=== PATIENT | female | born 1960 | race Two or more races ===

== ENCOUNTER 2021-06-10 12:31 | Inpatient (IN) | payer SELFPAY ==
[~2021-06-10] VITALS: Ht 177.8 cm; Wt 77.9 kg
[2021-06-10] MEDS ORDERED: LIDOCAINE 2%HCL (LOCAL ANESTH.) INJ 20ML MDV ONE (12:45)
[2021-06-10] MEDS ORDERED: ASPirin 325 MG TAB PO ONE (12:45)
[2021-06-10] MEDS ORDERED: IODIXANOL 320MG/ML 100ML BTL IV ONE ×2 (12:45→13:32)
[2021-06-10] MEDS ORDERED: MIDAZOLAM HCL 2MG/2ML 2ml VIAL (1mg/ml) ONE (12:47)
[2021-06-10] MEDS ORDERED: fentaNYL CITRATE 100 MCG/2 ML VL ONE (12:47)
[2021-06-10] MEDS ORDERED: ANGIOMAX 250 MG VIAL IV ONE (12:47)
[2021-06-10] MEDS ORDERED: diphenhdrAMINE HCL 50 MG/1 ML VL ONE ×2 (12:47→13:17)
[2021-06-10] MEDS ORDERED: SODIUM CHL 0.9% 50 ML ONE (12:48)
[2021-06-10 13:05] LABS: Basophils # (auto) 0 10 ^3/uL (0-0.2); Basophils % (auto) 0.6 % (0.0-2.0); Eosinophils # (auto) 0.1 10 ^3/uL (0-0.8); Eosinophils % (auto) 0.8 % (0.0-7.0); Hematocrit 46.6 % (36.0-46.0); Hemoglobin 15.5 g/dL (12.2-16.2); Lymphocytes # (auto) 2.5 10 ^3/uL (0.4-5.4); Lymphocytes % (auto) 31.4 % (10.0-50.0); Mean Corpuscular Hgb Conc. 33.4 g/dL (32.0-36.0); Mean Corpuscular Volume 89.9 fL (80.0-100.0); Monocytes # (auto) 0.5 10 ^3/uL (0-1.3); Monocytes % (auto) 6.1 % (0.0-12.0); Neutrophils # (auto) 4.8 10 ^3/uL (1.6-8.6); Neutrophils % (auto) 61.1 % (37.0-80.0); Red Blood Cells 5.18 10^6/uL (4.0-5.20); Red Cell Distribution Width 14.5 % (11.8-14.3); White Blood Cell 7.9 10^3/uL (4.4-10.8)
[2021-06-10] MEDS ORDERED: LIDOCAINE W/ EPINEPHRINE 2% INJ 20ML VIAL ONE (13:08)
[2021-06-10] MEDS ORDERED: FAMOTIDINE (10MG/ML) 2ML VL IV ONE (13:09)
[2021-06-10] MEDS ORDERED: ATROPINE SULF 1 MG/10ml SYR ONE (13:09)
[2021-06-10] MEDS ORDERED: EPINEPHrine HCL 1 MG/10 ML SYRG ONE (13:09)
[2021-06-10] MEDS ORDERED: methylPREDNISolone SOD SUCC 125 MG/2 ML VL ONE (13:09)
[2021-06-10] MEDS ORDERED: BUPIVACAINE 0.25% INJ 50ML VIAL ONE (13:11)
[2021-06-10] MEDS ORDERED: EPTIFIBATIDE INJ (2MG/ML) 10ML VIAL IV ONE (13:24)
[2021-06-10] MEDS ORDERED: TICAGRELOR 90 MG TAB ONE (13:41)
[2021-06-10] MEDS ORDERED: ASPirin 325 MG TAB ONE (13:41)
[2021-06-10] MEDS ORDERED: NITROGLYCERIN 0.4 MG SL TAB SL PRN (13:54)
[2021-06-10] MEDS: SOD CHL 0.45% 1,000 ML IV SCH ×2 (13:54→23:54)
[2021-06-10] MEDS ORDERED: HYDROcodone-ACET 5/325MG TAB PO PRN ×2 (13:54→15:00)
[2021-06-10] MEDS ORDERED: MORPHINE SULFATE INJECTION 2 MG/ML SYRG IV PRN ×2 (13:54→15:00)
[2021-06-10] MEDS ORDERED: ONDANSETRON HCL 4 MG/2 ML VIAL IV PRN ×2 (13:54→15:00)
[2021-06-10] MEDS: SODIUM CHLOR 0.9% PF (SALINE LOCK) 10ML VIAL/SYR IV SCH ×2 (14:00→21:52)
[2021-06-10] MEDS ORDERED: ACETAMINOPHEN 500 MG TAB PO PRN (15:00)
[2021-06-10] MEDS ORDERED: hydrALAZINE HCL 20 MG/ML VL IV PRN (15:00)
[2021-06-10 15:30] LABS: Albumin 3.4 g/dL (3.4-5.0); Calcium 9.3 mg/dL (8.5-10.1); Magnesium 2.7 mg/dL (1.6-2.6); Potassium 3.7 mmol/L (3.5-5.1)
[2021-06-10 15:31] LABS: BUN/Creatinine Ratio 9.8
[2021-06-10 15:41] LABS: Bilirubin, Total 0.6 mg/dL (0.2-1.0)
[2021-06-10] MEDS ORDERED: ESTR0.1C5 VG (18:22)
[2021-06-10] MEDS ORDERED: PROG1CAP2 PO (18:22)
[2021-06-10 20:00] VITALS: BP 131/81
[2021-06-10] MEDS: TICAGRELOR 90 MG TAB PO SCH (21:52)
[2021-06-10] MEDS: DOCUSATE SOD 100 MG CAP PO SCH (21:52)
[2021-06-10 22:00] VITALS: BP 131/81
[2021-06-10] MEDS ORDERED: METOPROLOL TARTRATE 25 MG TAB PO SCH (22:00)
[2021-06-10] MEDS ORDERED: TICAGRELOR 90 MG TAB PO SCH (22:00)
[2021-06-10] MEDS ORDERED: ATORVASTATIN 20 MG TAB PO SCH (22:00)
[2021-06-11 05:00] VITALS: BP 137/70
[2021-06-11 06:46] LABS: BUN/Creatinine Ratio 14.6; Calcium 9.9 mg/dL (8.5-10.1); Potassium 4.5 mmol/L (3.5-5.1)
[2021-06-11 06:50] LABS: Basophils # (auto) 0 10 ^3/uL (0-0.2); Basophils % (auto) 0.1 % (0.0-2.0); Eosinophils # (auto) 0 10 ^3/uL (0-0.8); Hemoglobin 15.4 g/dL (12.2-16.2); Lymphocytes # (auto) 1.1 10 ^3/uL (0.4-5.4); Lymphocytes % (auto) 10.6 % (10.0-50.0); Mean Corpuscular Hgb Conc. 33.5 g/dL (32.0-36.0); Mean Corpuscular Volume 89.7 fL (80.0-100.0); Monocytes # (auto) 0.3 10 ^3/uL (0-1.3); Monocytes % (auto) 3.3 % (0.0-12.0); Red Blood Cells 5.13 10^6/uL (4.0-5.20); Red Cell Distribution Width 14.4 % (11.8-14.3); White Blood Cell 10.5 10^3/uL (4.4-10.8)
[2021-06-11] MEDS: SODIUM CHLOR 0.9% PF (SALINE LOCK) 10ML VIAL/SYR IV SCH ×2 (07:12→13:39)
[2021-06-11 08:00] VITALS: BP 130/65
[2021-06-11] MEDS: SOD CHL 0.45% 1,000 ML IV SCH (09:54)
[2021-06-11] MEDS ORDERED: ASPirin-EC 81 mg tab PO SCH (10:00)
[2021-06-11] MEDS ORDERED: ASPirin 81 mg TAB PO SCH (10:00)
[2021-06-11] MEDS ORDERED: LISINOPRIL 10 MG TAB PO SCH (10:00)
[2021-06-11] MEDS: TICAGRELOR 90 MG TAB PO SCH (10:00)
[2021-06-11] MEDS ORDERED: PANTOPRAZOLE 40 MG/10 ML VIAL INJ IV SCH (10:00)
[2021-06-11] MEDS: DOCUSATE SOD 100 MG CAP PO SCH (10:00)
[2021-06-11] MEDS ORDERED: METOPROLOL SUCCINATE XL 50 MG TAB PO SCH (10:00)
[2021-06-11] MEDS ORDERED: NICOTINE 14 MG/24HR TOPICAL PATCH TD SCH (10:00)
[2021-06-11 12:00] VITALS: BP 133/65
[2021-06-11 12:34] VITALS: BP 130/66
== END 2021-06-11 14:03 | disposition home or self-care (01) | DRG 247 ==
LOC: ER 12:35 → CATH 1 12:44 → TELE 13:54 → TELE-CENTR 17:23
PROVIDERS: ADMIT Specialist; ATTEND Specialist
PROC: 027034Z Dilation of Coronary Artery, One Artery with Drug-eluting Intraluminal Device, Percutaneous Approach (ICD-10-PCS; principal; 2021-06-10)
PROC: 02C03ZZ Extirpation of Matter from Coronary Artery, One Artery, Percutaneous Approach (ICD-10-PCS; 2021-06-10)
PROC: 4A023N7 Measurement of Cardiac Sampling and Pressure, Left Heart, Percutaneous Approach (ICD-10-PCS; 2021-06-10)
PROC: B211YZZ Fluoroscopy of Multiple Coronary Arteries using Other Contrast (ICD-10-PCS; 2021-06-10)
PROC: B215YZZ Fluoroscopy of Left Heart using Other Contrast (ICD-10-PCS; 2021-06-10)
PROC: B41FYZZ Fluoroscopy of Right Lower Extremity Arteries using Other Contrast (ICD-10-PCS; 2021-06-10)
PROC: 3E073PZ Introduction of Platelet Inhibitor into Coronary Artery, Percutaneous Approach (ICD-10-PCS; 2021-06-10)
DX: I21.19 ST elevation (STEMI) myocardial infarction involving other coronary artery of inferior wall (principal); E78.5 Hyperlipidemia, unspecified; F17.210 Nicotine dependence, cigarettes, uncomplicated; I10 Essential (primary) hypertension; Z82.49 Family history of ischemic heart disease and other diseases of the circulatory system; Z20.822 Contact with and (suspected) exposure to COVID-19; Z88.8 Allergy status to other drugs, medicaments and biological substances; Z91.041 Radiographic dye allergy status
CPT/HCPCS: 36415; 71045; 75710; 80048; 80053; 80061; 83735; 84484; 85025; 86141; 87426; 92933; 93005; 93306; 93458; 99152; 99153; 99291; C1874; G0378; J2250; J3490; Q9967

== ENCOUNTER 2021-09-14 13:06 | Inpatient (IN) | payer BC ==
[~2021-09-14] VITALS: Ht 165.1 cm; Wt 88.4 kg
[2021-09-14 05:30] VITALS: BP 104/77
[~2021-09-14 13:06] MED LIST: ESTR0.1C5 VG; PROG1CAP2 PO
[2021-09-14] MEDS ORDERED: methylPREDNISolone SOD SUCC 125 MG/2 ML VL IV ONE (13:45)
[2021-09-14 14:52] LABS: Basophils # (auto) 0 10 ^3/uL (0-0.2); Eosinophils # (auto) 0 10 ^3/uL (0-0.8); Eosinophils % (auto) 0.1 % (0.0-7.0); Hematocrit 38.9 % (36.0-46.0); Hemoglobin 13.4 g/dL (12.2-16.2); Lymphocytes # (auto) 1.1 10 ^3/uL (0.4-5.4); Lymphocytes % (auto) 5.9 % (10.0-50.0); Mean Corpuscular Hemoglobin 30.2 pg (28.0-32.0); Mean Corpuscular Hgb Conc. 34.5 g/dL (32.0-36.0); Mean Corpuscular Volume 87.6 fL (80.0-100.0); Monocytes # (auto) 0.5 10 ^3/uL (0-1.3); Monocytes % (auto) 3.1 % (0.0-12.0); Neutrophils # (auto) 16.2 10 ^3/uL (1.6-8.6); Neutrophils % (auto) 90.9 % (37.0-80.0); Nucleated Red Blood Cells % 0.1 %; Red Blood Cells 4.44 10^6/uL (4.0-5.20); Red Cell Distribution Width 16.1 % (11.8-14.3); White Blood Cell 17.9 10^3/uL (4.4-10.8)
[2021-09-14 15:05] LABS: Anion Gap 11 (5-15); Blood Urea Nitrogen 38 mg/dL (7-18); Calcium 8.4 mg/dL (8.5-10.1); Carbon Dioxide 25 mmol/L (21-32); Chloride 90 mmol/L (98-107); Glucose 172 mg/dL (74-106); Sodium 126 mmol/L (136-145)
[2021-09-14 15:09] LABS: Lactic Acid w/Reflex 2.2 mmol/L (0.4-2.0)
[2021-09-14 15:12] LABS: Alanine Aminotransferase 51 U/L (13-56); Alkaline Phosphatase 154 U/L (45-117); Aspartate Aminotransferase 151 U/L (15-37); BUN/Creatinine Ratio 11.4; Bilirubin, Total 1.8 mg/dL (0.2-1.0); GFR African American 18 mL/min; GFR Non-African American 15 mL/min
[2021-09-14 15:17] LABS: CRP High Sensitivity > 19.0 mg/dL (< 0.3)
[2021-09-14] MEDS ORDERED: ZINC SULFATE 220mg CAP or TAB PO ONE (16:30)
[2021-09-14] MEDS ORDERED: POTASSIUM CHL 20MEQ/100ML 100 ML IV ONE (16:30)
[2021-09-14] MEDS ORDERED: CHOLECALCIFEROL (VITD3) 2,000 UNIT CAP/TAB PO ONE (16:30)
[2021-09-14] MEDS ORDERED: AZITHROMYCIN 500MG/ 250ML 250 ML IV ONE (16:30)
[2021-09-14] MEDS ORDERED: ASCORBIC ACID 500 MG TAB PO ONE (16:30)
[2021-09-15] MEDS ORDERED: ALBUTEROL SULF HFA 90MCG INH 200DOSE IN PRN (03:30)
[2021-09-15] MEDS ORDERED: ONDANSETRON HCL 4 MG/2 ML VIAL IV PRN (03:30)
[2021-09-15] MEDS ORDERED: NITROGLYCERIN 0.4 MG SL TAB SL PRN (03:30)
[2021-09-15] MEDS ORDERED: MORPHINE SULFATE INJECTION 2 MG/ML SYRG IV PRN (03:30)
[2021-09-15] MEDS ORDERED: ACETAMINOPHEN 500 MG TAB PO PRN (03:30)
[2021-09-15 05:00] VITALS: BP 104/77
[2021-09-15] MEDS: cefTRIAXone 1GM/50ML D5W 50 ML IV SCH (05:43)
[2021-09-15 07:17] VITALS: BP 104/77
[2021-09-15 08:00] VITALS: BP 153/70
[2021-09-15] MEDS ORDERED: TICA90TA PO (08:00)
[2021-09-15] MEDS ORDERED: ATOR-47 PO (08:00)
[2021-09-15] MEDS ORDERED: ASPI1TAB19 PO (08:00)
[2021-09-15 09:00] VITALS: BP 107/67
[2021-09-15] MEDS ORDERED: ENOXAPARIN SOD 40 MG/0.4 ML SYRINGE SC SCH (10:00)
[2021-09-15] MEDS: TICAGRELOR 90 MG TAB PO SCH ×2 (10:00→21:28)
[2021-09-15 10:37] LABS: INR 1.16 (0.9-1.15); Partial Thromboplastin Time 29.7 sec (23.6-33.0)
[2021-09-15] MEDS: AZITHROMYCIN 500MG/ 250ML 250 ML IV SCH (10:42)
[2021-09-15] MEDS: ASPirin 81 mg TAB PO SCH (10:42)
[2021-09-15] MEDS: ASCORBIC ACID 1,000 MG TAB PO SCH (10:43)
[2021-09-15] MEDS: CHOLECALCIFEROL (VITD3) 2,000 UNIT CAP/TAB PO SCH (10:43)
[2021-09-15] MEDS: ZINC SULFATE 220mg CAP or TAB PO SCH (10:43)
[2021-09-15] MEDS: PANTOPRAZOLE 40 MG TAB PO SCH (10:44)
[2021-09-15 11:15] LABS: Magnesium 3.4 mg/dL (1.6-2.6)
[2021-09-15 13:41] VITALS: BP 115/70
[2021-09-15 16:00] LABS: Urine Amorphous Crystal FEW /hpf (None Seen); Urine Bacteria NONE SEEN /hpf (None Seen); Urine Blood 1+ /uL (Negative); Urine Mucus FEW (None Seen); Urine Specific Gravity 1.017 (1.001-1.035); Urine WBC 5 /hpf (0 - 5)
[2021-09-15 16:34] VITALS: BP 107/69
[2021-09-15] MEDS ORDERED: guaiFENesin-DM 100/10mg/5ml SYR PO PRN (18:00)
[2021-09-15] MEDS: SODIUM CHLORIDE 0.9% 1,000 ML IV SCH (18:22)
[2021-09-15] MEDS: ATORVASTATIN 20 MG TAB PO SCH (21:59)
[2021-09-15 23:47] LABS: Protein, Urine 315.7 mg/dL (0.0-11.9)
[2021-09-16 05:12] VITALS: BP 110/60
[2021-09-16 05:58] LABS: Basophils # (auto) 0 10 ^3/uL (0-0.2); Basophils % (auto) 0.2 % (0.0-2.0); Eosinophils # (auto) 0.1 10 ^3/uL (0-0.8); Eosinophils % (auto) 0.8 % (0.0-7.0); Hematocrit 34.9 % (36.0-46.0); Hemoglobin 11.7 g/dL (12.2-16.2); Lymphocytes # (auto) 1.7 10 ^3/uL (0.4-5.4); Lymphocytes % (auto) 11.3 % (10.0-50.0); Mean Corpuscular Hemoglobin 29.3 pg (28.0-32.0); Mean Corpuscular Hgb Conc. 33.5 g/dL (32.0-36.0); Mean Corpuscular Volume 87.2 fL (80.0-100.0); Monocytes # (auto) 0.9 10 ^3/uL (0-1.3); Monocytes % (auto) 5.9 % (0.0-12.0); Neutrophils # (auto) 12.3 10 ^3/uL (1.6-8.6); Neutrophils % (auto) 81.8 % (37.0-80.0); Nucleated Red Blood Cells % 0.1 %; Red Cell Distribution Width 16.5 % (11.8-14.3)
[2021-09-16] MEDS: SODIUM CHLORIDE 0.9% 1,000 ML IV SCH ×2 (06:01→22:17)
[2021-09-16 06:09] LABS: Albumin 1.7 g/dL (3.4-5.0); Calcium 7.3 mg/dL (8.5-10.1); Magnesium 3.5 mg/dL (1.6-2.6)
[2021-09-16 06:11] LABS: BUN/Creatinine Ratio 13.5
[2021-09-16 06:14] LABS: Bilirubin, Total 1.6 mg/dL (0.2-1.0); Total Protein 5.8 g/dL (6.4-8.2)
[2021-09-16 06:15] LABS: INR 1.18 (0.9-1.15)
[2021-09-16 06:22] LABS: Potassium 2.9 mmol/L (3.5-5.1)
[2021-09-16] MEDS ORDERED: POTASSIUM EFFERVESENT TAB 25 MEQ PO ONE (08:45)
[2021-09-16 09:26] VITALS: BP 86/50
[2021-09-16] MEDS: ASPirin 81 mg TAB PO SCH (10:00)
[2021-09-16] MEDS ORDERED: ENOXAPARIN SOD 30 MG/0.3 ML SYRINGE SC SCH (10:00)
[2021-09-16] MEDS: TICAGRELOR 90 MG TAB PO SCH (10:00)
[2021-09-16] MEDS: CHOLECALCIFEROL (VITD3) 2,000 UNIT CAP/TAB PO SCH (10:00)
[2021-09-16] MEDS ORDERED: IPRATROPIUM BROM 0.5 MG/2.5ML INH SOL NEB PRN (11:00)
[2021-09-16] MEDS ORDERED: ALBUTEROL SULF 2.5 MG/0.5ML(0.5%) NEB SOLN NEB PRN (11:00)
[2021-09-16] MEDS: cefTRIAXone 1GM/50ML D5W 50 ML IV SCH (11:27)
[2021-09-16] MEDS: PANTOPRAZOLE 40 MG TAB PO SCH (11:46)
[2021-09-16] MEDS: ZINC SULFATE 220mg CAP or TAB PO SCH (11:46)
[2021-09-16] MEDS: ASCORBIC ACID 1,000 MG TAB PO SCH (11:46)
[2021-09-16] MEDS: AZITHROMYCIN 500MG/ 250ML 250 ML IV SCH (12:37)
[2021-09-16 13:49] VITALS: BP 138/60
[2021-09-16] MEDS ORDERED: HYDROcodone-ACET 5/325MG TAB PO ONE (16:30)
[2021-09-16 17:01] LABS: Hematocrit 33.1 % (36.0-46.0)
[2021-09-16 17:10] VITALS: BP 135/63
[2021-09-16 17:24] LABS: INR 1.14 (0.9-1.15); Partial Thromboplastin Time 31.5 sec (23.6-33.0)
[2021-09-16] MEDS: SALINE 0.65 % NASAL SPRAY 45ML BOTTLE EACHNOSTRI SCH ×3 (17:35→22:00)
[2021-09-16 22:00] VITALS: BP 118/61
[2021-09-16] MEDS: PANTOPRAZOLE 40 MG/10 ML VIAL INJ IV SCH (22:17)
[2021-09-16] MEDS: ATORVASTATIN 20 MG TAB PO SCH (22:17)
[2021-09-16 22:58] LABS: Hematocrit 29.2 % (36.0-46.0); Hemoglobin 9.8 g/dL (12.2-16.2)
[2021-09-17] VITALS (8 sets, daily range): BP systolic 114–134; BP diastolic 43–65
[2021-09-17] MEDS: SALINE 0.65 % NASAL SPRAY 45ML BOTTLE EACHNOSTRI SCH ×4 (05:52→21:17)
[2021-09-17] MEDS: SODIUM CHLORIDE 0.9% 1,000 ML IV SCH ×2 (06:08→16:20)
[2021-09-17 07:43] LABS: Hematocrit 28.5 % (36.0-46.0); Hemoglobin 9.6 g/dL (12.2-16.2); Mean Corpuscular Hemoglobin 29.5 pg (28.0-32.0); Mean Corpuscular Hgb Conc. 33.6 g/dL (32.0-36.0); Red Blood Cells 3.24 10^6/uL (4.0-5.20); Red Cell Distribution Width 16.5 % (11.8-14.3); White Blood Cell 9.6 10^3/uL (4.4-10.8)
[2021-09-17 07:49] LABS: Basophils % (manual) 0 (0.0-2.0); Blast Cells 0; Metamyelocytes % 0; Myelocytes % 0; Promyelocytes % 0; Reactive Lymphocytes 0
[2021-09-17 07:57] LABS: INR 1.13 (0.9-1.15)
[2021-09-17 08:06] LABS: Calcium 7.4 mg/dL (8.5-10.1); Magnesium 3.2 mg/dL (1.6-2.6)
[2021-09-17 08:12] LABS: Albumin 1.9 g/dL (3.4-5.0); BUN/Creatinine Ratio 14.8; Total Protein 6.1 g/dL (6.4-8.2)
[2021-09-17 08:17] LABS: Band Neutrophils % (manual) 2; Eosinophils % (manual) 1 (0-7); Lymphocytes % (manual) 22 (10.0-50.0); Monocytes % (manual) 3 (0-12)
[2021-09-17] MEDS: cefTRIAXone 1GM/50ML D5W 50 ML IV SCH (08:55)
[2021-09-17] MEDS: ASCORBIC ACID 1,000 MG TAB PO SCH (10:19)
[2021-09-17] MEDS: ZINC SULFATE 220mg CAP or TAB PO SCH (10:19)
[2021-09-17] MEDS: PANTOPRAZOLE 40 MG/10 ML VIAL INJ IV SCH ×2 (10:19→21:17)
[2021-09-17] MEDS: CHOLECALCIFEROL (VITD3) 2,000 UNIT CAP/TAB PO SCH (10:19)
[2021-09-17] MEDS: AZITHROMYCIN 500MG/ 250ML 250 ML IV SCH (10:19)
[2021-09-17] MEDS: ATORVASTATIN 20 MG TAB PO SCH (21:17)
[2021-09-18] MEDS: SODIUM CHLORIDE 0.9% 1,000 ML IV SCH ×4 (03:44→23:46)
[2021-09-18 05:00] VITALS: BP 128/60
[2021-09-18] MEDS: SALINE 0.65 % NASAL SPRAY 45ML BOTTLE EACHNOSTRI SCH ×4 (05:38→22:00)
[2021-09-18 07:49] LABS: Hematocrit 28.3 % (36.0-46.0); Hemoglobin 9.4 g/dL (12.2-16.2); Mean Corpuscular Hemoglobin 29.4 pg (28.0-32.0); Mean Corpuscular Hgb Conc. 33.4 g/dL (32.0-36.0); Red Blood Cells 3.21 10^6/uL (4.0-5.20); Red Cell Distribution Width 16.2 % (11.8-14.3)
[2021-09-18 07:51] LABS: Basophils % (manual) 0 (0.0-2.0); Blast Cells 0; Metamyelocytes % 0; Promyelocytes % 0; Reactive Lymphocytes 0
[2021-09-18 08:10] LABS: BUN/Creatinine Ratio 12.8; Calcium 7.6 mg/dL (8.5-10.1); Magnesium 3.2 mg/dL (1.6-2.6); Potassium 3.5 mmol/L (3.5-5.1)
[2021-09-18 08:31] LABS: Band Neutrophils % (manual) 1; Eosinophils % (manual) 2 (0-7); Lymphocytes % (manual) 13 (10.0-50.0); Monocytes % (manual) 3 (0-12); Myelocytes % 1
[2021-09-18 09:00] VITALS: BP 121/49
[2021-09-18] MEDS: PANTOPRAZOLE 40 MG/10 ML VIAL INJ IV SCH ×2 (09:45→22:17)
[2021-09-18] MEDS: cefTRIAXone 1GM/50ML D5W 50 ML IV SCH (09:45)
[2021-09-18] MEDS: CHOLECALCIFEROL (VITD3) 2,000 UNIT CAP/TAB PO SCH (10:00)
[2021-09-18] MEDS ORDERED: ALBUTEROL SULF 2.5 MG/0.5ML(0.5%) NEB SOLN NEB PRN (10:15)
[2021-09-18] MEDS ORDERED: IPRATROPIUM BROM 0.5 MG/2.5ML INH SOL NEB PRN (10:15)
[2021-09-18] MEDS: AZITHROMYCIN 500MG/ 250ML 250 ML IV SCH (10:30)
[2021-09-18 12:45] VITALS: BP 129/97
[2021-09-18 22:00] VITALS: BP 109/62
[2021-09-18] MEDS: ATORVASTATIN 20 MG TAB PO SCH (22:17)
[2021-09-19 05:00] VITALS: BP 123/61
[2021-09-19] MEDS: SALINE 0.65 % NASAL SPRAY 45ML BOTTLE EACHNOSTRI SCH ×4 (06:00→22:00)
[2021-09-19 07:03] LABS: Basophils # (auto) 0.1 10 ^3/uL (0-0.2); Basophils % (auto) 1.1 % (0.0-2.0); Eosinophils # (auto) 0.2 10 ^3/uL (0-0.8); Eosinophils % (auto) 1.9 % (0.0-7.0); Hemoglobin 8.8 g/dL (12.2-16.2); Lymphocytes # (auto) 1.3 10 ^3/uL (0.4-5.4); Lymphocytes % (auto) 12.2 % (10.0-50.0); Mean Corpuscular Hemoglobin 29.1 pg (28.0-32.0); Mean Corpuscular Hgb Conc. 32.6 g/dL (32.0-36.0); Monocytes # (auto) 0.6 10 ^3/uL (0-1.3); Neutrophils # (auto) 8.8 10 ^3/uL (1.6-8.6); Neutrophils % (auto) 79.8 % (37.0-80.0); Nucleated Red Blood Cells % 0.1 %; Red Blood Cells 3.03 10^6/uL (4.0-5.20); Red Cell Distribution Width 16.5 % (11.8-14.3); White Blood Cell 11.1 10^3/uL (4.4-10.8)
[2021-09-19 07:45] LABS: Potassium 3.9 mmol/L (3.5-5.1)
[2021-09-19 07:56] LABS: Albumin 2.1 g/dL (3.4-5.0); BUN/Creatinine Ratio 12.1; Bilirubin, Total 0.7 mg/dL (0.2-1.0); CRP High Sensitivity 8.28 mg/dL (< 0.3); Calcium 7.6 mg/dL (8.5-10.1); Total Protein 5.9 g/dL (6.4-8.2)
[2021-09-19 08:00] VITALS: BP 132/73
[2021-09-19 09:00] VITALS: BP 132/73
[2021-09-19] MEDS: PANTOPRAZOLE 40 MG/10 ML VIAL INJ IV SCH ×2 (09:03→22:16)
[2021-09-19] MEDS: cefTRIAXone 1GM/50ML D5W 50 ML IV SCH (09:03)
[2021-09-19] MEDS: AZITHROMYCIN 500MG/ 250ML 250 ML IV SCH (09:49)
[2021-09-19] MEDS: SODIUM CHLORIDE 0.9% 1,000 ML IV SCH ×2 (12:20→17:32)
[2021-09-19 13:00] VITALS: BP 128/63
[2021-09-19 16:43] VITALS: BP 142/70
[2021-09-19 22:00] VITALS: BP 130/70
[2021-09-19] MEDS: ATORVASTATIN 20 MG TAB PO SCH (22:17)
[2021-09-20] MEDS: SODIUM CHLORIDE 0.9% 1,000 ML IV SCH (04:48)
[2021-09-20 05:00] VITALS: BP 116/68
[2021-09-20] MEDS: SALINE 0.65 % NASAL SPRAY 45ML BOTTLE EACHNOSTRI SCH ×2 (06:00→12:00)
[2021-09-20 07:10] LABS: Basophils # (auto) 0 10 ^3/uL (0-0.2); Basophils % (auto) 0.1 % (0.0-2.0); Eosinophils # (auto) 0.2 10 ^3/uL (0-0.8); Eosinophils % (auto) 2.4 % (0.0-7.0); Hematocrit 25.7 % (36.0-46.0); Hemoglobin 8.5 g/dL (12.2-16.2); Lymphocytes # (auto) 1.5 10 ^3/uL (0.4-5.4); Lymphocytes % (auto) 14.5 % (10.0-50.0); Mean Corpuscular Hemoglobin 29.4 pg (28.0-32.0); Mean Corpuscular Volume 88.9 fL (80.0-100.0); Monocytes # (auto) 0.6 10 ^3/uL (0-1.3); Monocytes % (auto) 6.3 % (0.0-12.0); Neutrophils # (auto) 7.7 10 ^3/uL (1.6-8.6); Neutrophils % (auto) 76.7 % (37.0-80.0); Red Blood Cells 2.89 10^6/uL (4.0-5.20); Red Cell Distribution Width 16.5 % (11.8-14.3); White Blood Cell 10.1 10^3/uL (4.4-10.8)
[2021-09-20 07:19] LABS: INR 1.16 (0.9-1.15)
[2021-09-20 07:27] LABS: BUN/Creatinine Ratio 11.2; Calcium 7.9 mg/dL (8.5-10.1)
[2021-09-20 08:00] VITALS: BP 125/74
[2021-09-20] MEDS: PANTOPRAZOLE 40 MG/10 ML VIAL INJ IV SCH ×2 (10:22→22:04)
[2021-09-20] MEDS: cefTRIAXone 1GM/50ML D5W 50 ML IV SCH (10:23)
[2021-09-20] MEDS ORDERED: ONDANSETRON HCL 4 MG/2 ML VIAL IV PRN (12:00)
[2021-09-20] MEDS ORDERED: DOPamine 1600MCG/ML D5W 250 ML IV SCH (12:30)
[2021-09-20] MEDS: AZITHROMYCIN 250 MG TAB PO SCH (13:22)
[2021-09-20 17:00] VITALS: BP 133/67
[2021-09-20 22:00] VITALS: BP 135/69
[2021-09-20] MEDS: ATORVASTATIN 20 MG TAB PO SCH (22:05)
[2021-09-21 05:30] VITALS: BP 133/69
[2021-09-21] MEDS ORDERED: DOPamine 1600MCG/ML D5W 250 ML IV SCH (05:45)
[2021-09-21 07:45] LABS: Hematocrit 27.4 % (36.0-46.0); Hemoglobin 9.2 g/dL (12.2-16.2); Mean Corpuscular Hgb Conc. 33.6 g/dL (32.0-36.0); Mean Corpuscular Volume 89.3 fL (80.0-100.0); Red Blood Cells 3.07 10^6/uL (4.0-5.20); Red Cell Distribution Width 16.6 % (11.8-14.3); White Blood Cell 10.1 10^3/uL (4.4-10.8)
[2021-09-21 07:47] LABS: Potassium 3.8 mmol/L (3.5-5.1)
[2021-09-21 07:54] LABS: BUN/Creatinine Ratio 11.6
[2021-09-21 08:00] VITALS: BP 149/72
[2021-09-21 08:09] LABS: Band Neutrophils % (manual) 0; Basophils % (manual) 0 (0.0-2.0); Blast Cells 0; Metamyelocytes % 0; Promyelocytes % 0; Reactive Lymphocytes 0
[2021-09-21 08:57] LABS: Eosinophils % (manual) 1 (0-7); Lymphocytes % (manual) 10 (10.0-50.0); Monocytes % (manual) 7 (0-12); Myelocytes % 1
[2021-09-21 09:00] VITALS: BP 138/64
[2021-09-21] MEDS: PANTOPRAZOLE 40 MG/10 ML VIAL INJ IV SCH ×2 (09:55→21:58)
[2021-09-21] MEDS: CLOPIDOGREL BISULFATE 75 MG TAB PO SCH ×2 (09:55→10:00)
[2021-09-21] MEDS: cefTRIAXone 1GM/50ML D5W 50 ML IV SCH (09:56)
[2021-09-21] MEDS: AZITHROMYCIN 250 MG TAB PO SCH (09:56)
[2021-09-21 13:00] VITALS: BP 146/70
[2021-09-21] MEDS: SODIUM BICARBONATE 50ML VIAL 50 ML in SOD CHL 0.45% 1,000 ML IV SCH ×2 (15:33→22:01)
[2021-09-21 17:00] VITALS: BP 135/74
[2021-09-21] MEDS: ATORVASTATIN 20 MG TAB PO SCH (21:59)
[2021-09-21 22:00] VITALS: BP 152/71
[2021-09-22] MEDS ORDERED: SODIUM BICARBONATE 8.4 % INJ 50ML VIAL IV ONE (03:12)
[2021-09-22 05:00] VITALS: BP 138/67
[2021-09-22 07:23] LABS: Calcium 8.1 mg/dL (8.5-10.1); Potassium 3.8 mmol/L (3.5-5.1)
[2021-09-22 07:25] LABS: BUN/Creatinine Ratio 11.3
[2021-09-22 07:28] LABS: Basophils # (auto) 0 10 ^3/uL (0-0.2); Hemoglobin 7.9 g/dL (12.2-16.2); Lymphocytes # (auto) 1.1 10 ^3/uL (0.4-5.4)
[2021-09-22 07:38] LABS: Basophils % (auto) 0.2 % (0.0-2.0); Eosinophils # (auto) 0.3 10 ^3/uL (0-0.8); Hematocrit 23.7 % (36.0-46.0); Lymphocytes % (auto) 12.4 % (10.0-50.0); Mean Corpuscular Hemoglobin 29.9 pg (28.0-32.0); Mean Corpuscular Hgb Conc. 33.4 g/dL (32.0-36.0); Mean Corpuscular Volume 89.6 fL (80.0-100.0); Monocytes # (auto) 0.5 10 ^3/uL (0-1.3); Monocytes % (auto) 6.1 % (0.0-12.0); Neutrophils % (auto) 78.3 % (37.0-80.0); Red Blood Cells 2.64 10^6/uL (4.0-5.20); Red Cell Distribution Width 17.1 % (11.8-14.3)
[2021-09-22 08:30] VITALS: BP 171/80
[2021-09-22] MEDS: cefTRIAXone 1GM/50ML D5W 50 ML IV SCH (09:15)
[2021-09-22] MEDS: PANTOPRAZOLE 40 MG/10 ML VIAL INJ IV SCH ×2 (09:16→21:51)
[2021-09-22] MEDS: AZITHROMYCIN 250 MG TAB PO SCH (09:16)
[2021-09-22] MEDS: SODIUM BICARBONATE 50ML VIAL 50 ML in SOD CHL 0.45% 1,000 ML IV SCH ×2 (09:30→21:52)
[2021-09-22] MEDS: DOXYCYCLINE 100 MG TAB/CAP PO SCH ×2 (10:00→21:51)
[2021-09-22] MEDS: CLOPIDOGREL BISULFATE 75 MG TAB PO SCH (10:00)
[2021-09-22 12:30] VITALS: BP 156/75
[2021-09-22 17:00] VITALS: BP 129/76
[2021-09-22] MEDS: ATORVASTATIN 20 MG TAB PO SCH (21:51)
[2021-09-22 22:00] VITALS: BP 159/78
[2021-09-23 06:24] LABS: Hematocrit 23.8 % (36.0-46.0); Hemoglobin 8.2 g/dL (12.2-16.2)
[2021-09-23 06:31] LABS: BUN/Creatinine Ratio 11.5; Calcium 8.1 mg/dL (8.5-10.1); Potassium 3.7 mmol/L (3.5-5.1)
[2021-09-23 06:32] LABS: INR 1.11 (0.9-1.15)
[2021-09-23 08:50] VITALS: BP 158/79
[2021-09-23] MEDS: cefTRIAXone 1GM/50ML D5W 50 ML IV SCH (09:00)
[2021-09-23] MEDS: SOD CHL 0.45% 1,000 ML IV SCH ×3 (09:30→19:30)
[2021-09-23] MEDS: DOXYCYCLINE 100 MG TAB/CAP PO SCH ×3 (09:57→22:50)
[2021-09-23] MEDS: CLOPIDOGREL BISULFATE 75 MG TAB PO SCH (09:57)
[2021-09-23] MEDS: SALINE 0.65 % NASAL SPRAY 45ML BOTTLE EACHNOSTRI SCH ×3 (11:53→22:50)
[2021-09-23 12:45] VITALS: BP 166/78
[2021-09-23 16:24] VITALS: BP 184/75
[2021-09-23] MEDS ORDERED: amLODIPine BESYLATE 5 MG TAB PO ONE (16:45)
[2021-09-23] MEDS: hydrALAZINE HCL 20 MG/ML VL IV PRN ×2 (17:05→23:00)
[2021-09-23 22:00] VITALS: BP 171/79
[2021-09-23] MEDS: ATORVASTATIN 20 MG TAB PO SCH (22:50)
[2021-09-24 05:00] VITALS: BP 135/63
[2021-09-24] MEDS: SOD CHL 0.45% 1,000 ML IV SCH (05:32)
[2021-09-24] MEDS: SALINE 0.65 % NASAL SPRAY 45ML BOTTLE EACHNOSTRI SCH ×3 (06:33→18:28)
[2021-09-24 07:09] LABS: Basophils # (auto) 0 10 ^3/uL (0-0.2); Basophils % (auto) 0.3 % (0.0-2.0); Eosinophils # (auto) 0.1 10 ^3/uL (0-0.8); Eosinophils % (auto) 0.6 % (0.0-7.0); Hemoglobin 8.9 g/dL (12.2-16.2); Lymphocytes # (auto) 1.3 10 ^3/uL (0.4-5.4); Lymphocytes % (auto) 12.2 % (10.0-50.0); Mean Corpuscular Hemoglobin 30.3 pg (28.0-32.0); Monocytes # (auto) 0.5 10 ^3/uL (0-1.3); Monocytes % (auto) 4.3 % (0.0-12.0); Neutrophils # (auto) 9.1 10 ^3/uL (1.6-8.6); Neutrophils % (auto) 82.6 % (37.0-80.0); Red Blood Cells 2.92 10^6/uL (4.0-5.20)
[2021-09-24 07:24] LABS: Anion Gap 12 (5-15); BUN/Creatinine Ratio 10.7; Blood Urea Nitrogen 47 mg/dL (7-18); Calcium 8.3 mg/dL (8.5-10.1); Carbon Dioxide 22 mmol/L (21-32); Chloride 116 mmol/L (98-107); GFR African American 13 mL/min; GFR Non-African American 11 mL/min; Glucose 128 mg/dL (74-106); Potassium 3.6 mmol/L (3.5-5.1); Sodium 150 mmol/L (136-145)
[2021-09-24 09:00] VITALS: BP 138/63
[2021-09-24] MEDS: cefTRIAXone 1GM/50ML D5W 50 ML IV SCH (09:03)
[2021-09-24] MEDS: PANTOPRAZOLE 40 MG TAB PO SCH (09:04)
[2021-09-24] MEDS: amLODIPine BESYLATE 5 MG TAB PO SCH (09:04)
[2021-09-24] MEDS: CLOPIDOGREL BISULFATE 75 MG TAB PO SCH (09:05)
[2021-09-24] MEDS: DOXYCYCLINE 100 MG TAB/CAP PO SCH (10:00)
[2021-09-24] MEDS: D5W 5% 1,000 ML IV SCH (10:05)
[2021-09-24] MEDS ORDERED: LORazepam 2MG/ML-1ML VIAL IV ONE (10:30)
[2021-09-24 13:00] VITALS: BP 124/65
[2021-09-24 17:00] VITALS: BP 141/72
[2021-09-24 22:00] VITALS: BP 139/70
[2021-09-25] MEDS: DOXYCYCLINE 100 MG TAB/CAP PO SCH ×2 (00:17→12:13)
[2021-09-25] MEDS: ATORVASTATIN 20 MG TAB PO SCH (00:17)
[2021-09-25] MEDS: SALINE 0.65 % NASAL SPRAY 45ML BOTTLE EACHNOSTRI SCH ×3 (00:17→12:13)
[2021-09-25] MEDS: D5W 5% 1,000 ML IV SCH ×2 (00:18→11:25)
[2021-09-25 05:00] VITALS: BP 129/71
[2021-09-25 06:25] LABS: BUN/Creatinine Ratio 11.3; Calcium 8.2 mg/dL (8.5-10.1)
[2021-09-25 09:00] VITALS: BP 153/67
[2021-09-25] MEDS ORDERED: POTASSIUM CHL 20 Meq TABLET PO ONE ×2 (09:00→09:45)
[2021-09-25] MEDS: cefTRIAXone 1GM/50ML D5W 50 ML IV SCH (09:00)
[2021-09-25] MEDS: amLODIPine BESYLATE 5 MG TAB PO SCH (10:00)
[2021-09-25 12:01] VITALS: BP 145/62
[2021-09-25] MEDS: CLOPIDOGREL BISULFATE 75 MG TAB PO SCH (12:12)
[2021-09-25] MEDS: PANTOPRAZOLE 40 MG TAB PO SCH (12:13)
== END 2021-09-25 13:40 | disposition home or self-care (01) | DRG 871 ==
LOC: ER 13:13 → TELE-EAST 09-15 03:24 → TELE-CENTR 09-15 21:50
PROVIDERS: ADMIT Nurse Practitioner; ATTEND Internal Medicine
PROC: 30233L1 Transfusion of Nonautologous Fresh Plasma into Peripheral Vein, Percutaneous Approach (ICD-10-PCS; principal; 2021-09-17)
PROC: 2Y41X5Z Packing of Nasal Region using Packing Material (ICD-10-PCS; 2021-09-18)
DX: A41.89 Other specified sepsis (principal); E43 Unspecified severe protein-calorie malnutrition; N17.0 Acute kidney failure with tubular necrosis; J96.21 Acute and chronic respiratory failure with hypoxia; I67.83 Posterior reversible encephalopathy syndrome; J15.9 Unspecified bacterial pneumonia; E87.1 Hypo-osmolality and hyponatremia; K92.2 Gastrointestinal hemorrhage, unspecified; J44.0 Chronic obstructive pulmonary disease with (acute) lower respiratory infection; J44.1 Chronic obstructive pulmonary disease with (acute) exacerbation; N13.30 Unspecified hydronephrosis; E87.6 Hypokalemia; E66.9 Obesity, unspecified; D50.0 Iron deficiency anemia secondary to blood loss (chronic); E78.5 Hyperlipidemia, unspecified; E87.8 Other disorders of electrolyte and fluid balance, not elsewhere classified; I50.9 Heart failure, unspecified; I11.0 Hypertensive heart disease with heart failure; I48.91 Unspecified atrial fibrillation; I70.90 Unspecified atherosclerosis; J32.2 Chronic ethmoidal sinusitis; R04.0 Epistaxis; Z68.34 Body mass index [BMI] 34.0-34.9, adult; I25.2 Old myocardial infarction; Z88.8 Allergy status to other drugs, medicaments and biological substances; Z79.02 Long term (current) use of antithrombotics/antiplatelets; Z79.899 Other long term (current) drug therapy; Z82.49 Family history of ischemic heart disease and other diseases of the circulatory system; Z83.3 Family history of diabetes mellitus; Z87.891 Personal history of nicotine dependence; Z90.710 Acquired absence of both cervix and uterus; Z95.5 Presence of coronary angioplasty implant and graft
CPT/HCPCS: 36415; 70486; 70551; 71045; 71250; 76775; 78582; 80048; 80053; 81001; 82306; 82570; 82728; 83605; 83615; 83735; 83880; 84132; 84156; 84300; 84484; 85007; 85014; 85018; 85025; 85027; 85379; 85610; 85730; 86141; 86850; 86900; 86901; 87040; 87426; 93005; C9113; G0378; J0696; J3480